=== PATIENT | male | born 1965 | race Caucasian/White ===

== ENCOUNTER 2016-08-21 03:17 | Observation (INO) | payer SELFPAY ==
--- NOTE | ~2016-08-21 | HP ---
History And Physical [address] [place]. [address] NAME: NO HILTON : 63 STATUS : ADM Bridger PAT#: [id number] AGE: 50 ADM/REG DATE : 08/21/16 MR#: [id number] REPORT SERV DATE: 08/21/16 DICTATED BY: NO OLIVEIRA DATE: 08/21/16 REPORT STATUS : Draft TRANSCRIBED BY: MODL DATE: 08/21/16 DATE OF ADMISSION: 08/21/2016 POINT OF ENTRY: Transfer from [facility] of [place], [place]. CHIEF COMPLAINT: Chest pain. HISTORY OF PRESENT ILLNESS: Mr. Hilton is a 50-year-old gentleman with a reported history of nonobstructive coronary artery disease with prior myocardial infarction, hypertension, hyperlipidemia, bipolar disease, who presents to the emergency department today with reports of a three-day history of chest pain. The patient states that he has had three days of intermittent precordial chest pain. He describes it as chest pressure with radiation to the left arm with associated shortness of breath and diaphoresis. This pain is very similar in nature to his prior episodes of chest pain that resulted in reported myocardial infarctions. The patient states he had a few beers today and was out walking his dogs and then that is his last memory before awakening in the ambulance. According to the ER physician as well as the ER transfer records, the patient was apparently found down on the ground by EMS. Initial evaluation at [facility] for EKG with a left bundle branch block with no prior baseline for comparison. Cardiac enzymes were unremarkable. Labs notable for an alcohol level of 194. Urine drug screen was negative. The patient was subsequently transferred to [facility] for higher level of care. Upon arrival to [facility], the patient states that his chest pain had returned; however, after receiving nitroglycerin and morphine here, his chest pain is now much improved, but still there, but just a dull presence. He denies any recent fevers, night sweats, chills, chest pain, cough, sputum production, abdominal pain, nausea, vomiting, diarrhea, constipation, dysuria, lower extremity edema, melena, hematochezia, or hemoptysis. REVIEW OF SYSTEMS: Comprehensive review of systems otherwise negative unless listed in history of present illness. PREVIOUS MEDICAL HISTORY: 1. Nonobstructive coronary artery disease with prior myocardial infarction. Last catheterization approximately three years ago at [facility] [place] [facility], [place], [place]. 2. Hypertension. 3. Hyperlipidemia. 4. Bipolar disease. 5. Obstructive sleep apnea, noncompliant with CPAP therapy due to financial issues. History And Physical [address] [place]. [address] NAME: NO HILTON : 63 STATUS : ADM Bridger PAT#: [id number] AGE: 50 ADM/REG DATE : 08/21/16 MR#: [id number] REPORT SERV DATE: 08/21/16 DICTATED BY: NO OLIVEIRA DATE: 08/21/16 REPORT STATUS : Draft TRANSCRIBED BY: MODL DATE: 08/21/16 6. BPH. 7. Gout. SURGICAL HISTORY: Right hip pin placement. ALLERGIES: PENICILLIN. HOME MEDICATIONS: 1. Aspirin 325 mg daily. 2. Klonopin 1 mg daily p.r.n. 3. Abilify 15 mg daily. SOCIAL HISTORY: He is a former smoker, quit about 13 years ago. Occasional alcohol use, denies any history of alcohol abuse despite his alcohol level of 200 at the ER today. Denies illicits. FAMILY MEDICAL HISTORY: Mother with coronary artery disease in her 60s, of pancreatic cancer. Father had history of heart disease in his early 50s. He is an only child. LABS AND IMAGING: All obtained from transfer records from [facility]: 1. White count is 7.9, hemoglobin is 16.3, hematocrit is 47.1, platelets 246. INR is 1.0. 2. Sodium is 142, potassium 3.9, chloride 106, carbon dioxide 19, BUN 9, creatinine 1.0, glucose is 124, calcium is 9.6, protein is 7.7, albumin is 3.0, bili is 0.2, ALT is 26, AST is 42, alk phos is 74. 3. Alcohol level 194. 4. Troponin T is negative. 5. Urine drug screen negative. 6. EKG per my review shows a left bundle branch block with no prior baseline for comparison. Repeat EKG here at [facility] also shows left bundle branch block with no changes. 7. Repeat cardiac enzymes here are negative with a troponin of less than 0.02. PHYSICAL EXAMINATION: VITAL SIGNS: Temperature is 97.2 degrees Fahrenheit, pulse is 102, respirations 16, satting 98% on room air, blood pressure 139/73. GENERAL: The patient is awake and alert, in no acute distress. Resting comfortably. He is a well-developed, well-nourished male. He smells of alcohol. HEENT: Atraumatic and normocephalic. Moist mucous membranes. Pupils are equal, round, reactive to accommodation. Extraocular eye movements intact. No scleral icterus. NECK: No jugular venous distention. No carotid bruits. CARDIAC: Regular rate and rhythm. No murmurs or gallops. Normal S1, normal S2. LUNGS: Clear to auscultation bilaterally. No wheezes, rhonchi, or crackles. ABDOMEN: Soft, nontender, nondistended with good bowel sounds. No rebound, guarding, or rigidity. EXTREMITIES: Warm and perfused. No cyanosis, clubbing, or edema. SKIN: Warm and dry. History And Physical [address] [address] NAME: NO HILTON : 63 STATUS : ADM Bridger PAT#: [id number] AGE: 50 ADM/REG DATE : 08/21/16 MR#: [id number] REPORT SERV DATE: 08/21/16 DICTATED BY: NO OLIVEIRA DATE: 08/21/16 REPORT STATUS : Draft TRANSCRIBED BY: MICKI DATE: 08/21/16 PSYCHIATRIC: Affect appropriate. NEUROLOGIC: Alert and oriented x3. Cranial nerves 2 through 12 are grossly intact. Speech is normal. Gait not assessed. ASSESSMENT AND PLAN: Mr. Hilton is a 50-year-old gentleman with reported history of nonobstructive coronary artery disease, who presents with a three-day history of intermittent episodes of chest pain with associated diaphoresis and shortness of breath and also found down on the ground with alcohol level of approaching 200. PROBLEM LIST: 1. Chest pain. 2. Alcohol intoxication. 3. Nonobstructive coronary artery disease. 4. Hypertension. 5. Hyperlipidemia. 6. Family history of coronary artery disease. PLAN: 1. Chest pain. The patient has the following risk factors including hypertension, hyperlipidemia, family history, remote history of tobacco use as well as reported nonobstructive coronary artery disease. He has now had two sets of cardiac enzymes that are unremarkable. He does have a left bundle-branch block on EKG that has not changed compared to prior comparison at [facility]; however, we have no prior EKGs to compare to. We will try to obtain records from [facility] where he last had his cardiac catheterization approximately 3 years ago. We will schedule him for an echocardiogram as well as a stress test. Continue aspirin daily. We will also order nitroglycerin paste and morphine IV p.r.n. for chest pain. 2. Alcohol intoxication. The patient denies history of alcohol abuse. We will institute CIWA protocol. 3. Nonobstructive coronary artery disease. Again, we will try to obtain records from [place], [place]. 4. DVT prophylaxis. Lovenox subcu. CODE STATUS: The patient wished to be full code. JCB/MODL No Oliveira MD / [id number] CC: Jesus Mcmahan M.D.
--- NOTE | ~2016-08-21 | DS ---
Discharge Summary [facility] [address] [place]. [address] NAME: NO HILTON : 63 STATUS : ADM Bridger PAT#: [id number] AGE: 50 ADM/REG DATE : 08/21/16 MR#: [id number] REPORT SERV DATE: 08/22/16 DICTATED BY: ARPAN WADE DATE: 08/22/16 REPORT STATUS : Draft TRANSCRIBED BY: MODL DATE: 08/22/16 ADMISSION DATE: 08/21/2016 DISCHARGE DATE: 08/22/2016 FINAL HOSPITAL DIAGNOSES: 1. Chest pain. 2. Syncopal episode. 3. Known coronary artery disease. 4. Hypertension. 5. Hyperlipidemia. 6. Bipolar disorder. CONSULTATIONS: None. PROCEDURES: 1. Echocardiogram done on 08/21/2016 showing moderate left ventricular dysfunction with an EF of 37% with anteroseptal hypokinesis, left ventricular diastolic dysfunction, right ventricular systolic function intact, no significant valvular dysfunction, no previous studies for comparison. 2. Nuclear medicine stress test done on 08/21/2016 showing no ischemia, EF 41%, overall low risk vasodilator stress test. CURRENT PHYSICAL FINDINGS AND HISTORY OF PRESENT ILLNESS: Please see dictated H and P by Dr. Poe. In brief, the patient is a 50-year-old male with above medical history, was accepted in transfer from outlying facility by Dr. Poe on the evening of 08/21/2016 with complaint of chest pain and syncopal episode at home. Vital signs at time of admission, BP was 166/93, temperature was 97.2, heart rate was 96. Lab work at the time of admission, he had a magnesium of 2.1, CPK x2 with MB fraction was negative, and troponin x2 was less than 0.02. EKG shows left bundle-branch block. Chest x-ray was unremarkable. HOSPITAL COURSE: The patient had no further syncopal episodes. At his stay, he did receive some medication for chest pain, which he states was relatively minor pain. I reviewed the results of his stress test and echocardiogram with him on the morning of 08/22/2016. The patient requested discharge at that point. He was advised that his evaluation was incomplete that there was a change in his ejection fraction on his echocardiogram compared to his previous tests and that further evaluation would be recommended both for his chest pain complaint and his syncopal episode, the patient declined, requesting followup with his primary care physician on Wednesday. He was asked to consider that decision, and if he wished to leave, to sign out AMA and patient was in agreement to do that. He showed no signs of decompensation from his bipolar disorder and he showed no signs of withdrawal from alcohol, so I feel he was capable of making that decision. The patient will sign out AMA and he will self-schedule appointment with his PCP for followup. His medications will be as prior to admission, Abilify 15, aspirin 325, and Klonopin 1 mg p.r.n. He was advised not to drive until the etiology of his symptoms was noted and avoid hazardous activities, which he agreed to do. Discharge Summary [address] [address] NAME: NO HILTON : 63 STATUS : ADM Bridger PAT#: [id number] AGE: 50 ADM/REG DATE : 08/21/16 MR#: [id number] REPORT SERV DATE: 08/22/16 DICTATED BY: ARPAN WADE DATE: 08/22/16 REPORT STATUS : Draft TRANSCRIBED BY: MICKI DATE: 08/22/16 DICTATED BY: Arpan Wade M.D. TLRaúl/MICKI Arpan Wade M.D. / [id number] CC: Glenis Perez M.D.
[2016-08-21] MEDS ORDERED: ABILIFY15 PO (04:17)
[2016-08-21] MEDS ORDERED: ASA5GR PO (04:17)
[2016-08-21] MEDS ORDERED: KLONO1 PO (04:18)
[2016-08-21 04:52] LABS: CPK 97 U/L (0-200); TROPONIN I <0.02 NG/ML (<0.05)
[2016-08-21 04:54] LABS: CK-MB 0.6 NG/ML
[2016-08-21 10:30] LABS: CPK 95 U/L (0-200); TROPONIN I <0.02 NG/ML (<0.05)
[2016-08-21 10:31] LABS: CK-MB < 0.5 NG/ML
== END 2016-08-22 12:56 | disposition left against medical advice (07) ==
LOC: 5NO 03:17
PROVIDERS: Internal Medicine
DX: R07.9 Chest pain, unspecified (principal); R55 Syncope and collapse; I25.10 Atherosclerotic heart disease of native coronary artery without angina pectoris; I25.2 Old myocardial infarction; I10 Essential (primary) hypertension; E78.5 Hyperlipidemia, unspecified; N40.0 Benign prostatic hyperplasia without lower urinary tract symptoms; G47.33 Obstructive sleep apnea (adult) (pediatric); M10.9 Gout, unspecified; F31.9 Bipolar disorder, unspecified; Z91.19 Patient's noncompliance with other medical treatment and regimen; Z98.890 Other specified postprocedural states; Z87.81 Personal history of (healed) traumatic fracture; Z82.49 Family history of ischemic heart disease and other diseases of the circulatory system; Z88.0 Allergy status to penicillin; Z79.82 Long term (current) use of aspirin; Z79.899 Other long term (current) drug therapy
CPT/HCPCS: 71010; 78452; 82550; 82553; 83735; 84484; 93005; 93017; 96372; 96374; 96376; A9270-GY; A9502; C8929; G0378; J0153; J3411; Q9957